=== PATIENT | female | born 1995 | race Caucasian/White ===

== ENCOUNTER 2024-03-02 18:21 | Observation (INO) | payer SELFPAY ==
[2024-03-02] VITALS (10 sets, daily range): BP systolic 124–165; BP diastolic 74–122; BMI 37.9
[2024-03-02 13:13] LABS: % Eosinophils 10.4 % (0-6); % Immature Granulocytes 0.3 % (0-0.5); % Lymphocytes 24.6 % (20.5-51.1); % Monocytes 6.4 % (1.7-9.3); % Neutrophils 57.3 % (42.2-75.2); Absolute Basophils 0.1 10^3/uL (0-0.2); Absolute Eosinophils 1.1 10^3/uL (0-0.7); Absolute Lymphocytes 2.7 10^3/uL (1.2-3.4); Absolute Monocytes 0.7 10^3/uL (0.1-0.6); Absolute Neutrophils 6.2 10^3/uL (1.4-6.5); Hemoglobin 15.7 g/dL (12.0-16.0); Mean Corp Hgb Conc. 34.9 g/dL (33.0-37.0); Mean Corpuscular Hgb 30.1 pg (27.0-31.0); Mean Corpuscular Volume 86.4 fL (81.0-99.0); Mean Platelet Volume 9.6 fL (7.4-10.4); Nucleated Red Blood Cells % 0 %; Platelet Count 423 10^3/uL (130-400); Red Blood Cell Count 5.21 10^6/uL (4.20-5.40); Red Cell Dist. Width 12.4 % (11.5-14.5); White Blood Cell Count 10.8 10^3/uL (4.8-10.8)
[2024-03-02 13:25] LABS: ALT (SGPT) 37 U/L (0-35); AST (SGOT) 33 U/L (14-36); Albumin 4.8 g/dl (3.5-5.0); Alkaline Phosphatase 82 U/L (38-126); Blood Urea Nitrogen 8 mg/dl (7-17); Calcium 10.1 mg/dl (8.4-10.2); Carbon Dioxide 25 mmol/L (22-30); Chloride 103 mmol/L (98-107); Glucose 118 mg/dl (70-99); Potassium 4.3 mmol/L (3.5-5.1); Sodium 139 mmol/L (135-145); Total Protein 7.9 g/dl (6.3-8.2); eGFR > 60.00
[2024-03-02] MEDS: DUONEB 9 ML INH (13:54)
[2024-03-02] MEDS: SOLU-MEDROL PF 125 MG IV (13:55)
[2024-03-02 14:41] LABS: HCG, Serum Qualitative Screen Negative
--- NOTE | 2024-03-02 14:43 | ED.GENMED ---
History of Present Illness
General
Chief Complaint: Breathing Problem
Time Seen by Provider: 03/02/24 13:15
History of Present Illness
History of Present Illness:
28-year-old female without significant past medical history presenting to the emergency department for cough and shortness of breath. Patient reports that symptoms have been ongoing for the past week. She went to urgent care 3 days ago, had a
chest x-ray which she was told she may have a pneumonia, started on doxycycline and an albuterol inhaler. She denies any known history of asthma. The cough has been worse at nighttime, has had difficulty breathing. Also reports production of
sputum. Denies any known sick contacts. Denies fever, has had chills. Denies chest pain, however has had tightness secondary to her breathing. Denies any history of blood clots, recent surgery, recent travel. Denies additional acute medical
complaints
Past History
Past History
ED Past Medical History: None
ED Past Surgical History: None
Social History
Tobacco: Non-smoker
Alcohol: None
Drug: None
Personal: Single
Living: with family
Employment: Employed
Family History
Family History: Other (Noncontributory)
Phy Exam
Physical Exam
Physical Exam:
General: Well-appearing, no clinical signs of dehydration, nontoxic and in no acute distress
HEENT: protecting airway
Neck: appears supple
CV: Normal heart rate, regular rhythm, no evidence of cyanosis
Resp: No accessory muscle use, no increased work of breathing, diffuse expiratory wheezing with diminished air movement
Abd: Soft and non-distended, no tenderness to palpation, normal bowel sounds
Extremities: No deformities, no swelling, no erythema, pulses and sensation intact
Neuro: alert, no focal neurologic deficit
: deferred
Rectal: deferred
Psych: Normal affect
Skin: Intact
Course
Orders/Labs/Results
Orders:
Orders
03/02/24 12:43
EKG [Electrocardiogram (*1)] Urgent
Reason for Study: Shortness of Breath
EKG- Treatment ONCE
03/02/24 13:04
Complete Blood Count/With Diff Urgent
Comprehensive Metabolic Panel Urgent
HCG, Serum Qualitative Screen Urgent
Comment: ADD ON
03/02/24 13:39
Add On- LAB Urgent
Tests Added?: serum preg
Ipratropium/Albuterol Sulfate [Duoneb] 9 ml INH R NOW ONE
MethylPREDNISolone PF [Solu-Medrol Pf] 125 mg IV NOW STA
CR Chest - 2 Views Urgent
Comment:
Reason For Exam: cough and SOB
03/02/24 14:54
D-Dimer Urgent
Abnormal Lab Results
03/02/24
13:04
Plt Count 423 H 10^3/uL
(130-400)
Absolute Monos (auto) 0.7 H 10^3/uL
(0.1-0.6)
Absolute Eos (auto) 1.1 H 10^3/uL
(0-0.7)
Eosinophils % 10.4 H %
(0-6)
Glucose 118 H mg/dl
(70-99)
ALT 37 H U/L
(0-35)
03/02/24 13:04
03/02/24 13:04
Vital Signs
Initial and Last Documented VS:
Initial Vital Signs
Temp Pulse Resp BP Pulse Ox
98.2 F 141 16 130/78 96
03/02/24 12:40 03/02/24 12:40 03/02/24 12:40 03/02/24 12:40 03/02/24 12:40
Last Documented Vital Signs
Temp Pulse Resp BP Pulse Ox
98.2 F 120 23 142/90 91
03/02/24 12:40 03/02/24 15:15 03/02/24 15:15 03/02/24 14:17 03/02/24 15:15
MDM/Problems Addressed
MDM/Problems Addressed:
28-year-old female presenting to the emergency department for persistent cough and shortness of breath. Vital signs on arrival significant for tachycardia.
On physical exam, patient in no acute respiratory distress, however does have diffuse expiratory wheezing and diminished air movement, consistent with reactive airway disease. Patient denies any known history of asthma. Suspected bronchitis
component. Lower suspicion for pneumonia in the absence of fever. Given presenting tachycardia, cannot safely rule out PE. Will screen with D-dimer. Will treat with DuoNebs and steroids and obtain chest x-ray imaging and reassess for improvement
15:35 -D-dimer within normal limits. Labs relatively unremarkable, slight elevation in platelet count. Chest x-ray that acute cardiopulmonary disease. On reassessment, lung exam is not significantly improved. Continue to suspect persistent
reactive airway disease and bronchitis. Patient's oxygen is 90 at rest, remains tachycardic. At this time feel patient warrants admission, failure of outpatient therapy. Patient agreeable to plan
*EKG
Interpreted by ED Provider?: Yes
EKG Intrepretation Date: 03/02/24
EKG Intrepretation Time: 14:46
Interpretation: abnormal
Heart Rate: 128
Rate: tachycardiac
Rhythm: sinus
Salters: normal axis
Interval: normal interval
QRS Pattern: normal QRS
Ischemia: no ischemia
*Critical Care Note
Total Time (30-74mins, 75-104mins- exclusive of procedures): Not Applicable
ED Attending Note
-
Portions of this chart may have been created with voice recognition software.� Occasional wrong word or��sound alike� substitutions may have occurred due to the inherent limitations of voice recognition software.
Discharge Plan
Departure
Prescriptions:
No Action
methylprednisolone [Medrol (J Carlos)] 4 MG tablets,dose pack
4 tab PO . DIRECT Qty: 1 0RF
hydrocortisone 1 APPLIC cream
1 applic topical BID Qty: 1 0RF
Referrals:
NONE,* [Family Provider] -
Interventions
Interventions:
ED- Cardiac Assessment Last Done: 03/02/24 13:19
ED- Pulmonary Assessment Last Done: 03/02/24 13:19
Discharge Date and Time
Print Language: LAO
[2024-03-02 15:16] LABS: D-Dimer 0.28 ug/mlFEU (0.00-0.50)
--- NOTE | 2024-03-02 16:40 | HPS.HSE ---
Family Physician
-
Family Physician: * NONE
Chief Complaint
-
Cough and Shortness of Breath
History of Present Illness
Patient is a 28 yo F with no significant PMH c/o SOB x 1 week. Pt states she was doing a deep clean of her house and inhaled a large amount of dust which caused her to have frequent sneezing fits. She reports the sneezing fits transitioned to
coughing fits and then chest congestion. She admits to productive cough with predominantly clear phlegm that is intermittently colorful. She also c/o chest tightness d/t difficulty breathing. She reports fever on (Tmax 101), which prompted
her to go to urgent care ([facility]). She states they did a COVID test (negative) and CXR revealed 'fluid in lung'. She was given doxycycline and albuterol inhaler. Pt admits to using her albuterol inhaler about 12x/day and taking
doxycycline as prescribed. Pt denies current fever, sweats or chills. She denies prior history of asthma or reactive airway disease.
Medical History
Past Medical History
Past Medical History: Reports None
Past Surgical History: Reports None
Social History
Tobacco: Non-smoker
Alcohol: None
Family History
Family History: Not pertinent
Allergies / Home Medications
Allergies reflects when Allergies were last updated in [employer].
Home Medications with original date entered in [employer]
Allergy/Medication List:
Allergies
Allergy/AdvReac Type Severity Reaction Status Date / Time
No Known Allergies Allergy Verified 03/02/24 12:44
Home Medications
albuterol sulfate 90 mcg/actuation aerosol inhaler 2 puff inhalation R Q6HPRN PRN sob 03/02/24
calcium carbonate (Tums) 300 mg PO BIDPRN PRN heartburn 03/02/24
dextromethorphan-guaifenesin 5 mg-100 mg/5 mL oral liquid (Cough-Chest Congestion DM) 20 ml PO Q8HPRN PRN cough 03/02/24
doxycycline hyclate 100 mg capsule 100 mg PO BID 03/02/24
naproxen sodium 220 mg tablet (Aleve) 440 mg PO BIDPRN PRN mild pain 03/02/24
tetrahydrozoline 0.05 % eye drops (Visine) 1 drp BOTH EYES TIDPRN PRN dry eyes 03/02/24
Review of Systems
-
A 12 point ROS was completed and negative except as noted: Yes
Constitutional: Denies Fever or Chills
Respiratory: Reports See HPI
Cardiac: Denies Chest Pain or Palpitations
Physical Exam
Vital Signs
Vital Signs
Temp Pulse Resp BP Pulse Ox
98.2 F 117 27 142/90 91
03/02/24 12:40 03/02/24 15:30 03/02/24 15:30 03/02/24 14:17 03/02/24 15:15
Physical Exam
General: Comfortable and Conversant
Respiratory: Wheezes and Non Labored Respirations
Cardiac: S1/S2, Regular Rhythm and Tachycardia (Slightly)
GI: Soft and Non Tender
Musculoskeletal: No Clubbing, No Cyanosis and No Edema
Skin: Warm and Dry
Neuro: Awake, Alert, Oriented and Nonfocal/grossly intact
Psych: Calm
Laboratory Results
-
03/02/24 13:04
03/02/24 13:04
Laboratory Results
Total Bilirubin 1.0 mg/dl (0.2-1.3) 03/02/24 13:04
AST 33 U/L (14-36) 03/02/24 13:04
ALT 37 U/L (0-35) H 03/02/24 13:04
Alkaline Phosphatase 82 U/L (38-126) 03/02/24 13:04
Data Reviewed
-
Diagnostic Radiology: Report Reviewed by me
Lab Data: Labs Reviewed by me
Impression/Plan
-
Acute Bronchitis secondary to Reactive Airway Disease,
-Continue Duoneb QID and PRN
-Continue Prednisone 40mg Daily
-Continue Mucinex
DVT proph: Lovenox
Code Status: Full Code
--- NOTE | 2024-03-02 16:54 | W.PN.UPDATE ---
Update Note
Progress Note Update
I saw and examined the patient.
The DIAMOND SAWER or PA's note was reviewed and I agree with the note.
Comment: 28-year-old female presents with chief complaints of cough and shortness of breath.
Pt seen and examined with nurse Marie Solomon present at bedside:
165/100, 124, 24, 98.2 �F, 93% RA
No acute distress, awake and alert, normocephalic atraumatic
EOMI/PERRLA
tachy, reg rhythm, normal S1/S2
B/L wheezes with dec AE
CN2-12 intact
Lab Results
03/02/24 03/02/24
13:04 14:54
WBC 10.8
RBC 5.21
Hgb 15.7
Hct 45.0
MCV 86.4
MCH 30.1
MCHC 34.9
RDW 12.4
Plt Count 423 H
MPV 9.6
Abs Immat Gran (auto) 0.0
Absolute Neuts (auto) 6.2
Absolute Lymphs (auto) 2.7
Absolute Monos (auto) 0.7 H
Absolute Eos (auto) 1.1 H
Absolute Basos (auto) 0.1
Immature Gran % 0.3
Neutrophils % 57.3
Lymphocytes % 24.6
Monocytes % 6.4
Eosinophils % 10.4 H
Basophils % 1.0
Nucleated RBC % 0
D-Dimer 0.28
Sodium 139
Potassium 4.3
Chloride 103
Carbon Dioxide 25
BUN 8
Creatinine 0.8
eGFR > 60.00
Glucose 118 H
Calcium 10.1
Total Bilirubin 1.0
AST 33
ALT 37 H
Alkaline Phosphatase 82
Total Protein 7.9
Albumin 4.8
HCG, Qual Negative
CXR (read by me): No acute disease of the chest
Reactive airways due to acute bronchitis:
-With clear chest x-ray there is no indication for antibiotic therapy
-Patient received 125 mg of Solu-Medrol in the ER. Continue with prednisone 40 mg daily.
-DuoNebs as needed
-Currently saturating well on room air
Obesity due to excess calories:
-Encourage weight loss
-Affects all aspects of care
[2024-03-02 17:09] LABS: COVID-19 Antigen Negative (Negative)
--- NOTE | 2024-03-02 20:45 | PTCARENOTE ---
Received patient from ED via stretcher. Patient ambulated from stretcher to bed independently. AAOx3, no current complaints of pain. Oriented patient to room and placed call cerna within reach.
[2024-03-02] MEDS: DUONEB 3 ML INH (20:48)
[2024-03-02] MEDS: LOVENOX 40 MG SC (21:03)
[2024-03-02] MEDS: MUCINEX 600 MG PO (21:03)
[2024-03-03] MEDS: DUONEB 3 ML INH ×2 (07:20→11:24)
[2024-03-03] MEDS: MUCINEX 600 MG PO (08:06)
[2024-03-03] MEDS: DELTASONE 40 MG PO (08:06)
[2024-03-03 08:07] VITALS: BP 160/82
[2024-03-03 08:07] LABS: Hematocrit 46.7 % (37.0-47.0); Hemoglobin 16.1 g/dL (12.0-16.0); Mean Corp Hgb Conc. 34.5 g/dL (33.0-37.0); Mean Corpuscular Hgb 30.4 pg (27.0-31.0); Mean Corpuscular Volume 88.1 fL (81.0-99.0); Mean Platelet Volume 9.5 fL (7.4-10.4); Platelet Count 423 10^3/uL (130-400); Red Cell Dist. Width 12.3 % (11.5-14.5); White Blood Cell Count 16.5 10^3/uL (4.8-10.8)
[2024-03-03] MEDS: TYLENOL 650 MG PO (08:10)
[2024-03-03 08:34] LABS: Blood Urea Nitrogen 11 mg/dl (7-17); Calcium 10.3 mg/dl (8.4-10.2); Carbon Dioxide 22 mmol/L (22-30); Chloride 105 mmol/L (98-107); Estimated Creatinine Clearance > 125 ml/min; Glucose 131 mg/dl (70-99); Potassium 4.4 mmol/L (3.5-5.1); Sodium 138 mmol/L (135-145); eGFR > 60.00
--- NOTE | 2024-03-03 08:37 | W.PN.HOSP.TC ---
Today's Communication/Plan
-
d/c
Assessment / Plan
Assessment / Plan
Pt seen and examined with nurse Marily Byrnes present at bedside:
Gen: NAD, AAOx3.
Eyes: EOMI, PERRLA, no scleral icterus.
Neck: supple.
CV: RRR, +S1/S2, no m/r/g.
Resp: very faint and intermittent end expiratory wheezes
Abd: +BS, soft, NT, ND
Skin: No rashes.
Neuro: CN 2-12 intact, non-focal.
Psych: Normal mood and affect.
CXR (read by me): No acute disease of the chest
Reactive airways due to acute bronchitis:
-With clear chest x-ray there is no indication for antibiotic therapy
-Patient received 125 mg of Solu-Medrol in the ER. Continue with prednisone 40 mg daily.
-DuoNebs as needed
-Currently saturating well on room air
-currently with steroid induced hyperglycemia
Obesity due to excess calories:
-Encourage weight loss
-Affects all aspects of care
Medically cleared for discharge.
Total time spent on d/c = 31 min. This included today's physical exam, progress note, review of laboratory and diagnostic data, preparation of discharge documents and prescriptions, and discussions about the pt's hospital course and discharge plan
with the patient and other medical staff credentialing coordinator involved in the patient's care.
Anticipated Discharge: Today
Subjective/Interval History
-
Date of Service: March 03, 2024
SOB has greatly improved.
Objective Data
-
Labs:
Laboratory Results
03/03/24
07:50
WBC 16.5 H
Hgb 16.1 H
Hct 46.7
Plt Count 423 H
Sodium 138
Potassium 4.4
Chloride 105
Carbon Dioxide 22
BUN 11
Creatinine 0.7
Glucose 131 H
Calcium 10.3 H
Vital Signs:
Vital Signs
Temp Pulse Resp BP Pulse Ox
97.7 F 119 18 160/82 93
03/03/24 08:07 03/03/24 08:07 03/03/24 08:07 03/03/24 08:07 03/03/24 08:07
I&O
03/02/24 03/03/24 03/04/24
06:59 06:59 06:59
Intake Total 0 / 0
Balance 0 / 0
--- NOTE | 2024-03-03 09:34 | CM ---
CM met with pt bedside
She resides with her fiyvonne in an apt
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
Denies use of DMEs
Pt is uninsured and notes financial insecurities
Pt previously had insurance through [facility] plan but could not afford the associated costs and discontinued plan
Her job does not provided benefits
Pt notes she is typically over income for [place]
PC- no PCP due to lack on insurance
[email or web address] info provided
Marjorie along with [facility] info provided to pt
Also provided info for [facility] and [facility]
Referred to [facility] will transport home
Discharge Disposition- home, no needs- [facility] will transport
--- NOTE | 2024-03-03 12:11 | W.DCSUMMARY ---
Discharge Summary
Discharge Data
Date of Admission: 03/02/24
Date of Discharge: 03/03/24
-
Pending Results: No
Hospital Course
Primary diagnoses:
Reactive airways due to acute bronchitis
Secondary diagnoses:
Obesity due to excess calories
Consultants:
None
Imaging:
CXR (read by me): No acute disease of the chest
Hospital course: 28-year-old female who was admitted yesterday with chief complaints of cough and shortness of breath as outlined in the H&P done on admission. Chest x-ray showed no acute disease of the chest. Patient was saturating well on room
air on admission and never required supplemental oxygen. She received 125 mg of Solu-Medrol in the ER followed by prednisone 40 mg daily. She also received DuoNebs. The patient's wheezing and shortness of breath improved. She was discharged on a
quick steroid taper in medically stable condition.
Discharge Plan
-
Patient Disposition: Home (Routine Discharge)
Discharge Diagnosis/Procedures: Reactive airways due to acute bronchitis
Condition: Good
Diet: Regular
Activity: As tolerated
Driving Restrictions: As prior to admission
Bathing Restrictions: None
Referrals:
NONE,* [Family Provider] - in less than 1 week
Prescriptions:
New
prednisone 10 mg tablet
10 mg PO DIRECTED Qty: 10 0RF
Rx Instructions:
Taper: 40mg daily x 1 day, 30mg daily x 1 day, 20mg daily x 1 day, 10mg daily x 1 day
Continued
tetrahydrozoline [Visine] 0.05 % Drops
1 drp BOTH EYES TIDPRN PRN (Reason: dry eyes)
Tums 300 mg (750 mg) Tablet,Chewable
300 mg PO BIDPRN PRN (Reason: heartburn)
naproxen sodium [Aleve] 220 mg Tablet
440 mg PO BIDPRN PRN (Reason: mild pain)
dextromethorphan-guaifenesin [Cough-Chest Congestion DM] 5-100 mg/5 mL Liquid
20 ml PO Q8HPRN PRN (Reason: cough)
albuterol sulfate 90 mcg/actuation Hfa Aerosol Inhaler
2 puff INHALATION R Q6HPRN PRN (Reason: sob)
Discontinued
doxycycline hyclate 100 mg Capsule
100 mg PO BID
Patient Comments:
03/02/24: filled 02/28/24, to take 1 capsule twice a day for 10 days
Discharge Orders:
Discharge Patient (As Directed); Ordered 03/03/24
Ordered By: Pedro Ford
Discharge Date and Time
Print Language: BRITISH
== END 2024-03-03 11:55 | disposition home or self-care (01) ==
LOC: 4 EAST ACU 18:21
PROVIDERS: Physician Assistant Medical; ADMITTING PHYSICIAN Internal Medicine; EMERGENCY PHYSICIAN Student in an Organized Health Care Education/Training Program
DX: J20.9 Acute bronchitis, unspecified (principal); R06.02 Shortness of breath; R05.9 Cough, unspecified; R00.0 Tachycardia, unspecified; E66.09 Other obesity due to excess calories; Z11.52 Encounter for screening for COVID-19; R73.9 Hyperglycemia, unspecified; T38.0X5A Adverse effect of glucocorticoids and synthetic analogues, initial encounter; Y92.9 Unspecified place or not applicable; Z68.37 Body mass index [BMI] 37.0-37.9, adult
CPT/HCPCS: 71046; 80048; 80053; 84703; 85025; 85027; 85379; 87811; 93005; 94640; 96372; 96374; 99285